=== PATIENT | female | born 1965 | race Caucasian/White ===

== ENCOUNTER 2017-09-21 21:33 | Emergency (ER) | payer MEDICAID ==
[~2017-09-21] VITALS: Ht 157.5 cm; Wt 74.8 kg
[2017-09-21 22:06] VITALS: BP 138/86
--- NOTE | 2017-09-21 22:21 | NUR ---
patient ambulated to overflow chair3
--- NOTE | 2017-09-21 22:32 | NUR ---
51Y F BIB FAMILY C/O BUG BITE TO LEFT FA SINCE THIS MORNING. THERE IS ERYTHEMA NOTES TO THE L FA. PT STATES PAIN IS STING LIKE IN PAIN, NO ITCHYNESS. PT DENIES ANY N/V/D, SOB, CP AT THE MOMENT. PT AAOX4. BREATHING IS UNLABORED AND EVEN.
[2017-09-21] MEDS ORDERED: diphenhydrAMINE 50 MG/ML VIAL IM ONE (23:15)
[2017-09-21 23:39] VITALS: BP 122/71
--- NOTE | 2017-09-21 23:39 | NUR ---
Patient discharged with v/s stable. Written and verbal after care instructions given and explained. Patient alert, oriented and verbalized understanding of instructions. Ambulatory with steady gait. All questions addressed prior to discharge. ID band removed. Patient advised to follow up with PMD. Rx of HYDROCORTISONE 2.5% AND BENADRYL 25MG given. Patient educated on indication of medication including possible reaction and side effects. Opportunity to ask questions provided and answered.
== END 2017-09-21 23:39 | disposition home or self-care (01) ==
LOC: MED 21:33
DX: S50.862A Insect bite (nonvenomous) of left forearm, initial encounter (principal); W57.XXXA Bitten or stung by nonvenomous insect and other nonvenomous arthropods, initial encounter; Y93.89 Activity, other specified; Y92.89 Other specified places as the place of occurrence of the external cause; Y99.8 Other external cause status
CPT/HCPCS: 96372; 99283; J1200

== ENCOUNTER 2019-09-01 08:18 | Emergency (ER) | payer MEDICAID ==
[~2019-09-01] VITALS: Ht 157.5 cm; Wt 72.6 kg
[2019-09-01 08:25] VITALS: BP 139/74
[2019-09-01 10:25] VITALS: BP 139/74
== END 2019-09-01 10:24 | disposition home or self-care (01) ==
LOC: MED 08:18
DX: J11.1 Influenza due to unidentified influenza virus with other respiratory manifestations (principal)
CPT/HCPCS: 71045; 87804; 99284; Q0092